=== PATIENT | female | born 1965 | race African-American/Black ===

== ENCOUNTER 2019-05-15 01:07 | Emergency (ER) | payer OTHER ==
[~2019-05-15] VITALS: Ht 167.6 cm; Wt 113.6 kg
[~2019-05-15 01:07] MED LIST: ALBU8.5H3 IH; AMLO10TA55 PO; ATEN100T PO; CLON.2 PO; ESCI10TA PO; GABA-531 PO; HYDR25TA PO; LISI40TA4 PO; METF-960 PO; RANI300T4 PO; SPIR50 PO
[2019-05-15 01:29] LABS: GLUCOSE,POINT OF CARE 114 MG/DL (70-110)
[2019-05-15] MEDS ORDERED: TEMA15CA PO (01:29)
[2019-05-15] MEDS ORDERED: CHL25 PO (01:29)
[2019-05-15] MEDS ORDERED: ATOR10TA84 PO (01:29)
[2019-05-15] MEDS ORDERED: LOSA50TA64 PO (01:29)
[2019-05-15] MEDS ORDERED: MELO-107 PO (01:29)
[2019-05-15] MEDS ORDERED: HYDR-4455 PO (01:29)
[2019-05-15] MEDS ORDERED: METO50 PO (01:29)
[2019-05-15] MEDS ORDERED: CYCL10 PO (01:29)
[2019-05-15] MEDS ORDERED: SODIUM CHLORIDE 0.9% 1,000 ML IV ONE (03:15)
[2019-05-15] MEDS ORDERED: 0.9% SODIUM CHLORIDE 10 ML SYRINGE IVP PRN (03:15)
[2019-05-15] MEDS ORDERED: KETOROLAC TROMETHAMINE 30 MG/ML VIAL IVP ONE (03:15)
[2019-05-15 03:34] LABS: BASOPHILS % (AUTO) 0.8 % (0.0-2.0); EOSINOPHILS % (AUTO) 1.1 % (1.0-6.0); HEMATOCRIT 43.2 % (36-46); HEMOGLOBIN 13.5 g/dL (12.0-16.0); LYMPHOCYTES # (AUTO) 3.3 K/uL (1.0-4.8); LYMPHOCYTES % (AUTO) 39.9 % (22.0-44.0); MEAN CORPUSCULAR HEMOGLOBIN 23.9 pg (26.0-34.0); MEAN CORPUSCULAR HGB CONC 31.2 G/dL (31.0-37.0); MEAN CORPUSCULAR VOLUME 77 fL (80-100); MONOCYTES # (AUTO) 0.8 K/uL (0.1-1.0); MONOCYTES % (AUTO) 9.2 % (2.0-9.0); PLATELET COUNT (AUTO) 231 K/uL (150-450); RED BLOOD CELL COUNT(AUTO) 5.65 MIL/uL (4.00-5.20); RED CELL DISTRIBUTION WIDTH 15.8 % (11.5-14.5)
[2019-05-15 03:42] LABS: ANION GAP 3 mmol/L (8-16); CARBON DIOXIDE 33 mmol/L (22-29); CHLORIDE 103 mmol/L (98-107); CREATININE 0.98 mg/dL (0.60-1.30); GLOMERULAR FILTR. RATE CALC > 60 mL/min (>60); GLUCOSE,RANDOM 108 mg/dL (70-110); POTASSIUM 3.8 mmol/L (3.5-5.1); SODIUM SERUM 139 mmol/L (136-145); UREA NITROGEN, BLOOD 18 mg/dL (7-18)
[2019-05-15 03:48] LABS: ALANINE AMINOTRANSFERASE 31 U/L (12-78); ALBUMIN 3.2 g/dL (3.4-5.0); ALKALINE PHOSPHATASE 124 U/L (46-116); ASPARTATE AMINOTRANSFERASE 16 U/L (15-37); BILIRUBIN,TOTAL 0.4 mg/dL (0.1-1.0); TOTAL PROTEIN, SERUM 7.1 g/dL (6.4-8.2)
[2019-05-15 03:51] LABS: LACTIC ACID 1.3 mmol/L (0.4-2.0)
[2019-05-15] MEDS ORDERED: SODIUM CHLORIDE 0.9% 100 ML ONE (04:30)
[2019-05-15] MEDS ORDERED: IOVERSOL 350 MG/ML 100 ML VIAL ONE (04:30)
[2019-05-15] MEDS ORDERED: CefTRIAXone 1 GM/DEXTROSE 50 ML IV ONE (06:45)
[2019-05-15 07:24] VITALS: BP 168/104
== END 2019-05-15 08:05 | disposition left against medical advice (07) ==
LOC: EMS 01:09
DX: J02.9 Acute pharyngitis, unspecified (principal); R59.1 Generalized enlarged lymph nodes; I10 Essential (primary) hypertension; E11.9 Type 2 diabetes mellitus without complications; K21.9 Gastro-esophageal reflux disease without esophagitis; F32.9 Major depressive disorder, single episode, unspecified; F41.9 Anxiety disorder, unspecified; F17.210 Nicotine dependence, cigarettes, uncomplicated; Z79.84 Long term (current) use of oral hypoglycemic drugs; Z79.899 Other long term (current) drug therapy
CPT/HCPCS: 36415; 70491; 80053; 82962; 83605; 85025; 87040; 87430; 93005; 96365; 96375; 99285; 99406; J0696; J1885; J7030; J7050; Q9967

== ENCOUNTER 2019-07-27 22:35 | Emergency (ER) | payer OTHER ==
[~2019-07-27] VITALS: Ht 165.1 cm; Wt 118.2 kg
[~2019-07-27 22:35] MED LIST changes: +ATOR10TA84 PO; +CHL25 PO; +CYCL10 PO; +HYDR-4455 PO; +LOSA50TA64 PO; +MELO-107 PO; +METO50 PO; +TEMA15CA PO
[2019-07-27 22:52] LABS: GLUCOSE,POINT OF CARE 114 MG/DL (70-110)
[2019-07-28] MEDS ORDERED: KETOROLAC TROMETHAMINE 30 MG/ML VIAL IVP ONE
[2019-07-28] MEDS ORDERED: CARISOPRODOL 350 MG TABLET PO ONE
[2019-07-28] MEDS ORDERED: METOPROLOL SUCCINATE 50 MG ER TABLET PO ONE (00:15)
[2019-07-28] MEDS ORDERED: CloNIDine HCL 0.2 MG TABLET PO ONE (00:15)
[2019-07-28 01:49] VITALS: BP 144/92
== END 2019-07-28 02:54 | disposition home or self-care (01) ==
LOC: EMS 22:40
DX: M54.2 Cervicalgia (principal); M54.9 Dorsalgia, unspecified; I10 Essential (primary) hypertension; F41.9 Anxiety disorder, unspecified; F32.9 Major depressive disorder, single episode, unspecified; E11.9 Type 2 diabetes mellitus without complications; K21.9 Gastro-esophageal reflux disease without esophagitis; F17.210 Nicotine dependence, cigarettes, uncomplicated; Z90.710 Acquired absence of both cervix and uterus; Z79.84 Long term (current) use of oral hypoglycemic drugs; Z79.899 Other long term (current) drug therapy; V49.9XXA Car occupant (driver) (passenger) injured in unspecified traffic accident, initial encounter; Y93.89 Activity, other specified; Y92.89 Other specified places as the place of occurrence of the external cause; Y99.8 Other external cause status
CPT/HCPCS: 72125; 72128; 72131; 82962; 96374; 99284; J1885

== ENCOUNTER 2020-03-28 17:44 | Emergency (ER) | payer OTHER ==
[~2020-03-28] VITALS: Ht 172.7 cm; Wt 109.1 kg
[~2020-03-28 17:44] MED LIST changes: -ATEN100T PO; +ATEN100T92 PO; +CLON-353 PO; -CLON.2 PO; +ESCI-8 PO; -ESCI10TA PO; +GABA-1181 PO; -GABA-531 PO; +LOSA50TA37 PO; -LOSA50TA64 PO
[2020-03-28 17:45] VITALS: BP 119/95
[2020-03-28] MEDS ORDERED: PROPARACAINE HCL 0.5% 15 ML OPHTHALMIC SOLUTION OU ONE (18:15)
[2020-03-28] MEDS ORDERED: HYDROCODONE/ACETAMINOPHEN 5-325 MG TABLET PO ONE (18:30)
== END 2020-03-28 19:28 | disposition home or self-care (01) ==
LOC: EMS 17:44
DX: H10.9 Unspecified conjunctivitis (principal); F17.210 Nicotine dependence, cigarettes, uncomplicated; F41.9 Anxiety disorder, unspecified; F32.9 Major depressive disorder, single episode, unspecified; E11.9 Type 2 diabetes mellitus without complications; K21.9 Gastro-esophageal reflux disease without esophagitis; I10 Essential (primary) hypertension; Z90.710 Acquired absence of both cervix and uterus; Z79.899 Other long term (current) drug therapy
CPT/HCPCS: 99406

== ENCOUNTER 2021-01-01 12:47 | Emergency (ER) | payer OTHER ==
[~2021-01-01] VITALS: Ht 170.2 cm; Wt 118.2 kg
[~2021-01-01 12:47] MED LIST changes: -LISI40TA4 PO; +LISI40TA9 PO
[2021-01-01 14:00] VITALS: BP 139/86
== END 2021-01-01 14:18 | disposition home or self-care (01) ==
LOC: EMS 12:47
DX: K02.9 Dental caries, unspecified (principal); F41.9 Anxiety disorder, unspecified; F32.9 Major depressive disorder, single episode, unspecified; E11.9 Type 2 diabetes mellitus without complications; K21.9 Gastro-esophageal reflux disease without esophagitis; I10 Essential (primary) hypertension; F17.210 Nicotine dependence, cigarettes, uncomplicated; Z90.710 Acquired absence of both cervix and uterus; Z79.899 Other long term (current) drug therapy; Z79.84 Long term (current) use of oral hypoglycemic drugs
CPT/HCPCS: 99283

== ENCOUNTER 2022-03-22 12:11 | Emergency (ER) | payer OTHER ==
[~2022-03-22] VITALS: Ht 170.2 cm; Wt 120.9 kg
[~2022-03-22 12:11] MED LIST changes: +CYCL-448 PO; -CYCL10 PO; +LOSA-382 PO; -LOSA50TA37 PO; +METF-1211 PO; -METF-960 PO; -SPIR50 PO; +SPIR50TA27 PO
[2022-03-22 13:34] VITALS: BP 128/81
== END 2022-03-22 15:00 | disposition home or self-care (01) ==
LOC: EMS 12:11
DX: R04.0 Epistaxis (principal); I10 Essential (primary) hypertension; E11.9 Type 2 diabetes mellitus without complications; K21.9 Gastro-esophageal reflux disease without esophagitis; F32.9 Major depressive disorder, single episode, unspecified; F41.9 Anxiety disorder, unspecified; F17.210 Nicotine dependence, cigarettes, uncomplicated; Z79.899 Other long term (current) drug therapy
CPT/HCPCS: 82962; 99282

== ENCOUNTER 2023-06-03 22:31 | Emergency (ER) | payer OTHER ==
[~2023-06-03] VITALS: Ht 167.6 cm; Wt 127.0 kg
[~2023-06-03 22:31] MED LIST changes: +ATOR10TA PO; -ATOR10TA84 PO; -MELO-107 PO; +MELO-381 PO
[2023-06-03 22:44] VITALS: TEMP 98.4
[2023-06-04] MEDS ORDERED: KETOROLAC TROMETHAMINE 30 MG/ML VIAL IM ONE (01:00)
[2023-06-04] MEDS ORDERED: METHOCARBAMOL 500 MG TABLET PO ONE (01:00)
[2023-06-04] MEDS ORDERED: METH-812 PO (01:21)
[2023-06-04 02:16] VITALS: BP 156/84; PULSE 90; RESP 18
== END 2023-06-04 02:17 | disposition home or self-care (01) ==
LOC: EMS 22:32
DX: M54.50 Low back pain, unspecified (principal); F41.9 Anxiety disorder, unspecified; M19.90 Unspecified osteoarthritis, unspecified site; F32.A Depression, unspecified; E11.9 Type 2 diabetes mellitus without complications; I10 Essential (primary) hypertension; F17.210 Nicotine dependence, cigarettes, uncomplicated; Z90.710 Acquired absence of both cervix and uterus; Z98.890 Other specified postprocedural states
CPT/HCPCS: 99283; 82962; 72100; 96372; J1885

== ENCOUNTER 2024-09-10 09:23 | Emergency (ER) | payer OTHER ==
[~2024-09-10] VITALS: Ht 170.2 cm; Wt 109.1 kg
[~2024-09-10 09:23] MED LIST changes: +MELO-107 PO; -MELO-381 PO; +METH-812 PO
[2024-09-10 09:29] VITALS: TEMP 98.9
[2024-09-10 09:54] LABS: BASOPHILS % (AUTO) 1.2 % (0.0-2.0); EOSINOPHILS % (AUTO) 1.7 % (1.0-6.0); HEMATOCRIT 42.6 % (36-46); HEMOGLOBIN 13.7 g/dL (12.0-16.0); LYMPHOCYTES # (AUTO) 2.2 K/uL (1.0-4.8); LYMPHOCYTES % (AUTO) 39.6 % (22.0-44.0); MEAN CORPUSCULAR HEMOGLOBIN 24.4 pg (26.0-34.0); MEAN CORPUSCULAR HGB CONC 32.1 G/dL (31.0-37.0); MEAN CORPUSCULAR VOLUME 76 fL (80-100); MONOCYTES # (AUTO) 0.5 K/uL (0.1-1.0); MONOCYTES % (AUTO) 8.8 % (2.0-9.0); NEUTROPHILS # (AUTO) 2.7 K/uL (1.8-7.7); NEUTROPHILS % (AUTO) 48.7 % (40.0-70.0); PLATELET COUNT (AUTO) 220 K/uL (150-450); RED CELL DISTRIBUTION WIDTH 16.4 % (11.5-14.5); WHITE BLOOD COUNT (AUTO) 5.5 K/uL (4.5-11.0)
[2024-09-10] MEDS: MAG HYDROX/ALUMINUM HYD/SIMETH 30 ML SUSPENSION UDCUP PO ONE (09:55)
[2024-09-10] MEDS: FAMOTIDINE 20 MG TABLET PO ONE (09:55)
[2024-09-10] MEDS: KETOROLAC TROMETHAMINE 30 MG/ML VIAL IM ONE (09:56)
[2024-09-10 10:03] LABS: ANION GAP 4 mmol/L (8-16); CALCIUM, TOTAL 9.9 mg/dL (8.8-10.5); CARBON DIOXIDE 30 mmol/L (22-29); CHLORIDE 107 mmol/L (98-107); CREATININE 0.83 mg/dL (0.60-1.30); GLOMERULAR FILTR. RATE CALC > 60 mL/min (>60); GLUCOSE,RANDOM 106 mg/dL (70-110); POTASSIUM 3.6 mmol/L (3.5-5.1); SODIUM SERUM 141 mmol/L (136-145); UREA NITROGEN, BLOOD 11 mg/dL (7-18)
[2024-09-10 10:12] LABS: TROPONIN I-HIGH SENSITIVITY 10 ng/L (<51)
[2024-09-10 10:35] LABS: RBC MORPHOLOGY COMMENT ABNORMAL RBC MORPH
[2024-09-10 11:34] VITALS: BP 150/90; PULSE 72; RESP 20; O2SAT 98
== END 2024-09-10 11:39 | disposition home or self-care (01) ==
LOC: EMS 09:23
DX: R07.9 Chest pain, unspecified (principal); R20.2 Paresthesia of skin; E11.9 Type 2 diabetes mellitus without complications; K21.9 Gastro-esophageal reflux disease without esophagitis; I10 Essential (primary) hypertension; F32.A Depression, unspecified; F41.9 Anxiety disorder, unspecified; F17.210 Nicotine dependence, cigarettes, uncomplicated; Z79.1 Long term (current) use of non-steroidal anti-inflammatories (NSAID); Z90.710 Acquired absence of both cervix and uterus; Z98.890 Other specified postprocedural states; Z79.899 Other long term (current) drug therapy
CPT/HCPCS: 99285; 71045; 80048; 84484; 85025; 36415; 93005; 96372; J1885

== ENCOUNTER 2024-10-05 09:32 | Emergency (ER) | payer OTHER ==
[2024-10-05] MEDS: TraMADol HCL 50 MG TABLET PO ONE (10:38)
[2024-10-05] MEDS: FLUORESCEIN SODIUM 1 MG STRIP OU ONE (10:38)
[2024-10-05 11:31] LABS: BASOPHILS % (AUTO) 0.4 % (0.0-2.0); EOSINOPHILS % (AUTO) 1.3 % (1.0-6.0); HEMATOCRIT 42.8 % (36-46); HEMOGLOBIN 13.4 g/dL (12.0-16.0); LYMPHOCYTES # (AUTO) 2.2 K/uL (1.0-4.8); MEAN CORPUSCULAR HGB CONC 31.3 G/dL (31.0-37.0); MEAN CORPUSCULAR VOLUME 77 fL (80-100); MONOCYTES # (AUTO) 0.5 K/uL (0.1-1.0); MONOCYTES % (AUTO) 8.1 % (2.0-9.0); NEUTROPHILS # (AUTO) 3.1 K/uL (1.8-7.7); NEUTROPHILS % (AUTO) 53.2 % (40.0-70.0); PLATELET COUNT (AUTO) 243 K/uL (150-450); RED BLOOD CELL COUNT(AUTO) 5.58 MIL/uL (4.00-5.20); RED CELL DISTRIBUTION WIDTH 16.3 % (11.5-14.5); WHITE BLOOD COUNT (AUTO) 5.9 K/uL (4.5-11.0)
[2024-10-05] MEDS: DOXYCYCLINE HYCLATE 100 MG TABLET PO ONE (11:31)
[2024-10-05 11:32] LABS: RBC MORPHOLOGY COMMENT ABNORMAL RBC MORPH
[2024-10-05 11:37] LABS: ANION GAP 4 mmol/L (8-16); CALCIUM, TOTAL 10.2 mg/dL (8.8-10.5); CARBON DIOXIDE 31 mmol/L (22-29); CHLORIDE 106 mmol/L (98-107); CREATININE 0.75 mg/dL (0.60-1.30); GLOMERULAR FILTR. RATE CALC > 60 mL/min (>60); GLUCOSE,RANDOM 106 mg/dL (70-110); POTASSIUM 4.2 mmol/L (3.5-5.1); SODIUM SERUM 141 mmol/L (136-145); UREA NITROGEN, BLOOD 11 mg/dL (7-18)
[2024-10-05] MEDS ORDERED: DOXY-354 PO (12:08)
[2024-10-05] MEDS ORDERED: MOXI3DRO25 OU (12:09)
[2024-10-05] MEDS ORDERED: TRAM50TA5 PO (12:10)
[2024-10-05 12:25] VITALS: BP 150/93; PULSE 77; RESP 18; O2SAT 98
== END 2024-10-05 12:27 | disposition home or self-care (01) ==
LOC: EMS 09:32
DX: H10.9 Unspecified conjunctivitis (principal); H15.001 Unspecified scleritis, right eye; F41.9 Anxiety disorder, unspecified; F32.A Depression, unspecified; E11.9 Type 2 diabetes mellitus without complications; I10 Essential (primary) hypertension; K21.9 Gastro-esophageal reflux disease without esophagitis; F17.210 Nicotine dependence, cigarettes, uncomplicated; Z79.1 Long term (current) use of non-steroidal anti-inflammatories (NSAID); Z79.84 Long term (current) use of oral hypoglycemic drugs; Z90.710 Acquired absence of both cervix and uterus; Z98.890 Other specified postprocedural states
CPT/HCPCS: 80048; 85025; 99283